=== PATIENT | male | born 1970 | race African-American/Black ===

== ENCOUNTER 2020-02-05 16:17 | Emergency (ER) | payer SELFPAY ==
[~2020-02-05] VITALS: Ht 167.6 cm; Wt 59.0 kg
[2020-02-05] MEDS ORDERED: DiphenhydrAMINE 50mg/ml Inj IVP ONE (16:30)
--- NOTE | 2020-02-05 16:34 | Emergency Room Report ---
History of Present Illness General Chief Complaint: Dyspnea/Respdistress Source: Patient Present Illness [facility] Disclaimer: Please note that this report is being documented using DRAGON technology. This can lead to erroneous entry secondary to incorrect interpretation by the dictating instrument. HPI: 49-year-old male with no reported medical history presents for evaluation of vomiting diarrhea and fevers. Patient states symptoms present for approximately 1 week. He does not recall an inciting meal or event that caused the symptoms. He reports nonbloody nonbilious emesis and watery diarrhea on and off for the past 7 days. Progressively feeling weak and rundown. He reports subjective fevers but no objective temperature readings taken. Denies abdominal pain now or in the past week. He has not taken any medication prior to arrival. He is trying to hydrate but unable to hold down liquids. Last bout of emesis 2 hours ago same with diarrhea. He does not know any sick contacts. Patient is currently homeless. He reports mild alcohol use 1 week ago but none since. Occasional marijuana but denies other drug use. No prior history of abdominal surgeries. PMH: Patient denies PSH: Patient denies Allergies: None reported Social Hx: Occasional THC, occasional alcohol, denies tobacco use Allergies: Coded Allergies: No Known Allergies (Unverified , 02/05/20) COVID-19 Screening Contact w/high risk pt: No Recent Travel to affected area: No Experienced COVID-19 symptoms?: Yes COVID-19 symptoms experienced: Shortness of Breath, Flu-Like Symptoms COVID-19 Testing performed [employer]: No Nursing Documentation-PMH Past Medical History: No Stated History Review of Systems All Other Systems: negative except mentioned in HPI Physical Exam Vital Signs Date Time Temp Pulse Resp B/P (MAP) Pulse Ox O2 Delivery O2 Flow Rate FiO2 02/05/20 16:28 98.4 115 27 115/85 (95) 100 Room Air General: Awake and alert, appears fatigued but afebrile HEENT: NC/AT. EOMI. Cardiovascular: Tachycardic. S1 and S2 normal. No murmur appreciated Resp: Normal work of breathing. No cough, wheezing or crackles appreciated Abdomen: Abdomen is soft, nondistended. Nontender, no masses, no rebound Skin: Intact. No abrasions, laceration or rash over the exposed skin MSK: Normal tone and bulk. Moving all extremities. No obvious deformity. Neuro: Awake and alert. Mentating appropriately. Medical Decision Making Diagnostic Impression: Primary Impression: Dehydration Additional Impressions: Diarrhea Hypokalemia ER Course This a 49-year-old male presenting for 1 week vomiting and diarrhea without abdominal pain. Differential includes was not limited to gastritis, gastroenteritis, pancreatitis, cholecystitis, hepatitis, food poisoning, viral syndrome, appendicitis, diverticulitis, UTI, pyelonephritis to name a few. Overall his presentation more consistent with a viral syndrome. He does appear dehydrated. Will provide IV fluids, antiemetics, antacids. We will draw broad labs. 2100: Patient received IV fluids and IV and oral potassium repletion. Tolerating p.o. without difficulty. Hypokalemia likely secondary to volume losses as is his slightly elevated creatinine though his BUN is normal. Will start on supplementation for the week and referred to outpatient clinics to establish himself as a patient. Believe the patient is safe for outpatient follow-up and does not require hospitalization at this time. He reports feeling much better after IV fluids and potassium. Will discharge with Zofran and potassium supplements. Discussed reasons to return to the ED. He understands and agrees with this treatment plan. Laboratory Tests Test 02/05/20 17:00 White Blood Count 7.3 K/UL (4.8-10.8) Red Blood Count 5.26 M/UL (4.70-6.10) Hemoglobin 16.1 G/DL (14.2-18.0) Hematocrit 47.5 % (42.0-52.0) Mean Corpuscular Volume 90 FL (80-99) Mean Corpuscular Hemoglobin 30.6 PG (27.0-31.0) Mean Corpuscular Hemoglobin Concent 33.9 G/DL (32.0-36.0) Red Cell Distribution Width 11.3 % (11.6-14.8) L Platelet Count 297 K/UL (150-450) Mean Platelet Volume 6.8 FL (6.5-10.1) Neutrophils (%) (Auto) 40.0 % (45.0-75.0) L Lymphocytes (%) (Auto) 44.1 % (20.0-45.0) Monocytes (%) (Auto) 12.2 % (1.0-10.0) H Eosinophils (%) (Auto) 1.0 % (0.0-3.0) Basophils (%) (Auto) 2.6 % (0.0-2.0) H Sodium Level 135 MMOL/L (136-145) L Potassium Level 2.7 MMOL/L (3.5-5.1) *L Chloride Level 94 MMOL/L (98-107) L Carbon Dioxide Level 29 MMOL/L (21-32) Anion Gap 12 mmol/L (5-15) Blood Urea Nitrogen 15 mg/dL (7-18) Creatinine 1.8 MG/DL (0.55-1.30) H Estimated Glomerular Filtration Rate 48.5 mL/min (>60) Glucose Level 91 MG/DL (74-106) Calcium Level 9.7 MG/DL (8.5-10.1) Total Bilirubin 1.0 MG/DL (0.2-1.0) Aspartate Amino Transferase (AST) 48 U/L (15-37) H Alanine Aminotransferase (ALT) 70 U/L (12-78) Alkaline Phosphatase 76 U/L (46-116) Total Protein 9.0 G/DL (6.4-8.2) H Albumin 4.7 G/DL (3.4-5.0) Globulin 4.3 g/dL Albumin/Globulin Ratio 1.1 (1.0-2.7) Lipase 256 U/L (73-393) Serum Alcohol < 3 mg/dL Last Vital Signs Date Time Temp Pulse Resp B/P (MAP) Pulse Ox O2 Delivery O2 Flow Rate FiO2 02/05/20 16:28 98.4 115 27 115/85 (95) 100 Room Air Disposition: HOME, SELF-CARE Condition: Stable Scripts Ondansetron Odt* (ZOFRAN ODT*) 4 Mg Tab.rapdis 4 MG BC EVERY 6 HOURS PRN for Nausea & Vomiting, #10 TAB 0 Refills Prov: Crow Agosto MD 02/05/20 Potassium Chloride* (K-DUR*) 20 Meq Tab.er.prt 20 MEQ ORAL DAILY, #5 TAB 0 Refills Prov: Crow Agosto MD 02/05/20 Crow Agosto MD Feb 05, 2020 16:34
[2020-02-05 17:09] VITALS: BP 115/85
[2020-02-05 17:23] LABS: BASOPHILS % (AUTO) 2.6 % (0.0-2.0); HEMATOCRIT 47.5 % (42.0-52.0); HEMOGLOBIN 16.1 G/DL (14.2-18.0); LYMPHOCYTES % (AUTO) 44.1 % (20.0-45.0); MEAN CORPUSCULAR VOLUME 90 FL (80-99); MONOCYTES % (AUTO) 12.2 % (1.0-10.0); PLATELET COUNT 297 K/UL (150-450); RED BLOOD COUNT 5.26 M/UL (4.70-6.10); RED CELL DISTRIBUTION WIDTH 11.3 % (11.6-14.8); WHITE BLOOD COUNT 7.3 K/UL (4.8-10.8)
[2020-02-05 17:38] LABS: ALANINE AMINOTRANSFERASE 70 U/L (12-78); ALBUMIN 4.7 G/DL (3.4-5.0); ALBUMIN/GLOBULIN RATIO 1.1 (1.0-2.7); ALKALINE PHOSPHATASE 76 U/L (46-116); ANION GAP 12 mmol/L (5-15); ASPARTATE AMINO TRANSFERASE 48 U/L (15-37); BLOOD UREA NITROGEN 15 mg/dL (7-18); CALCIUM 9.7 MG/DL (8.5-10.1); CARBON DIOXIDE 29 MMOL/L (21-32); CHLORIDE 94 MMOL/L (98-107); CREATININE 1.8 MG/DL (0.55-1.30); SODIUM 135 MMOL/L (136-145)
[2020-02-05 18:05] LABS: POTASSIUM 2.7 MMOL/L (3.5-5.1)
[2020-02-05 19:10] VITALS: BP 125/82
[2020-02-05] MEDS ORDERED: POTASSIUM CHLO20 ME1 ORAL (20:07)
[2020-02-05] MEDS ORDERED: ONDANSETRON ODT4 MG BC (20:15)
[2020-02-05 20:20] VITALS: BP 116/84
== END 2020-02-05 20:20 | disposition home or self-care (01) ==
LOC: EMR 16:50
DX: E86.0 Dehydration (principal); R19.7 Diarrhea, unspecified; E87.6 Hypokalemia; F12.90 Cannabis use, unspecified, uncomplicated
CPT/HCPCS: 36415; 80053; 83690; 85025; 96361; 96365; 96375; 99284; G0480; J1200; J2405; J3480; J7030; S0028; J8499